=== PATIENT | female | born 1955 | race Caucasian/White ===

== ENCOUNTER 2019-12-15 07:44 | Outpatient (CLI) | payer BC, MEDICARE, OTHER, SELFPAY ==
--- NOTE | ~2019-12-15 | MM_ITS ---
EXAMINATION: MM screening marlon BI w mack HISTORY: Screening mammogram TECHNIQUE: Craniocaudal and mediolateral oblique 3-D tomosynthesis images were obtained and synthetic 2-D images were generated. CAD analysis was submitted and interpreted. COMPARISON: 08/26/2018 diagnostic left mammogram and left breast ultrasound 07/22/2018, 05/31/2017, 05/19/2016 bilateral digital screening mammogram examinations BREAST PARENCHYMAL COMPOSITION: There are scattered areas of fibroglandular density. FINDINGS: There is no evidence of suspicious mass, calcification, or architectural distortion to sugg est malignancy in either breast. There has been no suspicious interval change. IMPRESSION: 1. No mammographic evidence of malignancy. 2. Recommend routine screening mammography in one year. BI-RADS Category 1: Negative Reviewed, dictated and finalized at location A.
== END 2019-12-15 07:45 | disposition home or self-care (01) ==
PROVIDERS: PCP Internal Medicine; Visit Provider Internal Medicine
DX: Z12.31 Encounter for screening mammogram for malignant neoplasm of breast (principal)
CPT/HCPCS: 77063; 77067

== ENCOUNTER 2020-12-27 08:11 | Outpatient (CLI) | payer BC, MEDICARE, OTHER, SELFPAY ==
--- NOTE | ~2020-12-27 | MM_ITS ---
EXAMINATION: MM screening amrlon BI w mack HISTORY: Screening TECHNIQUE: Craniocaudal and mediolateral oblique 3-D tomosynthesis images were obtained and synthetic 2-D images were generated. CAD analysis was submitted and interpreted. COMPARISON: No prior mammogram is available for comparison at this institution. BREAST PARENCHYMAL COMPOSITION: There are scattered areas of fibroglandular density. FINDINGS: There is no evidence of suspicious mass, calcification, or architectural distortion to sugg est malignancy in either breast. There has been no suspicious interval change. IMPRESSION: 1. No mammographic evidence of malignancy. 2. Recommend routine screening mammography in one year. BI-RADS Category 1: Negative Reviewed, dictated and finalized at location A.
== END 2020-12-27 08:12 | disposition home or self-care (01) ==
LOC: CHSIMG 08:15
PROVIDERS: PCP Internal Medicine; Visit Provider Internal Medicine
DX: Z12.31 Encounter for screening mammogram for malignant neoplasm of breast (principal)
CPT/HCPCS: 77063; 77067

== ENCOUNTER 2021-01-07 10:30 | Outpatient (CLI) | payer BC, MEDICARE, OTHER, SELFPAY ==
--- NOTE | ~2021-01-07 | XR_ITS ---
EXAMINATION: XR chest 2V DATE: 01/07/2021 11:34 INDICATION: Chest pain. Bradycardia. TECHNIQUE: Frontal and lateral views of the chest were obtained. COMPARISON: Chest 2 views 01/15/2012 FINDINGS: There is no pneumonia, pleural effusion, or pneumothorax. The heart size is normal. IMPRESSION: 1. No acute cardiopulmonary disease. Reviewed, dictated and finalized at location B.
[2021-01-07 10:43] LABS: Basophils Absolute Auto 0.05 K/mm3 (0.00-0.10); Basophils Percent Auto 0.9 % (0.0-1.0); Eosinophils Absolute Auto 0.28 K/mm3 (0.02-0.50); Eosinophils Percent Auto 5.1 % (1.0-6.0); Hematocrit 39.7 % (35.0-42.0); Hemoglobin 13.1 g/dL (11.7-13.8); Immature Granulocyte Absolute 0.02 K/mm3 (0.00-0.00); Immature Granulocyte Percent A 0.4 % (0.0-0.0); Lymphocytes Absolute Auto 2.25 K/mm3 (1.10-4.50); Lymphocytes Percent Auto 40.9 % (18.0-42.0); Mean Corpuscular Volume 94.1 fL (78.0-102.0); Mean Platelet Volume 11.3 fl (9.2-11.8); Monocytes Absolute Auto 0.56 K/mm3 (0.10-0.90); Monocytes Percent Auto 10.2 % (2.0-11.0); Neutrophils Absolute Auto 2.3 K/mm3 (1.7-7.2); Neutrophils Percent Auto 42.5 % (50.0-70.0); Platelet Count Result 226 K/mm3 (150-420); Red Blood Count 4.22 M/mm3 (4.20-5.40); Red Cell Distribution Width 12.3 % (11.6-14.4); White Blood Count 5.5 K/mm3 (4.8-10.8)
[2021-01-07 10:56] LABS: D Dimer 0.24 mg/L (0.19-0.50)
[2021-01-07 11:10] LABS: Alanine Aminotransferase 27 U/L (14-59); Albumin Level 3.9 g/dL (3.4-5.0); Alkaline Phosphatase 79 U/L (46-116); Amylase 72 U/L (25-115); Anion Gap 9 mmol/L (8-16); Aspartate Amino Transferase 21 U/L (15-37); Bilirubin,Total 0.3 mg/dL (0.00-1.00); Blood Urea Nitrogen 21 mg/dL (7-18); Calcium 9.1 mg/dL (8.5-10.1); Carbon Dioxide 31 mmol/L (21-32); Chloride 105 mmol/L (98-108); Creatine Kinase 148 U/L (26-192); Estimated Glomerular Filt Rate 50; Glucose 74 mg/dL (70-99); Lipase 183 U/L (73-393); NT Pro B Type Natriuretic Pept 110 pg/mL (0-125); Osmolality Calculated 302 mOsm/kg (285-295); Potassium 3.6 mmol/L (3.5-5.1); Sodium 145 mmol/L (136-145); Total Protein 7.3 g/dL (6.4-8.2); Troponin I 5.5 ng/L (0.00-60.4)
== END 2021-01-07 10:31 | disposition home or self-care (01) ==
LOC: CHSLAB 10:34
PROVIDERS: PCP Internal Medicine; Visit Provider Nurse Practitioner Family
DX: R07.9 Chest pain, unspecified (principal); R00.1 Bradycardia, unspecified; I50.9 Heart failure, unspecified
CPT/HCPCS: 36415; 71046; 80053; 82150; 82550; 82553; 83690; 83880; 84439; 84443; 84484; 85025; 85380

== ENCOUNTER 2021-01-13 07:16 | Outpatient (CLI) | payer BC, MEDICARE, OTHER, SELFPAY ==
--- NOTE | 2021-01-13 08:15 | ECHO_ITS ---
Patient Info Name: Iglesia Delgado Age: 65 years : 1955 Gender: Female Ht: 64 in Wt: 165 lbs BSA: 1.86 m2 HR: 63 bpm BP: 146 / 51 mmHg Exam Date: 01/13/2021 7:15 AM Exam Location: [facility] [place] Patient Status: Outpatient Admit Date: 01/13/2021 Staff Ordering Physician: Timothy Oliva MD Manager Freelance: John Mijares RDCS, RT Attending Provider: Timothy Oliva MD Exam Type: CA echo doppler color flow Study Info Indications R94.31 - Abnormal electrocardiogram ECG EKG Complete two-dimensional, color flow and Doppler transthoracic echocardiogram is performed. Strain analysis performed. Summary 1. Complete two-dimensional, color flow and Doppler transthoracic echocardiogram is performed. 2. Left ventricular chamber dimension is normal. 3. Left ventricular systolic function is normal, estimated at 65-70%. 4. The left ventricular diastolic function is grade I diastolic dysfunction. 5. E/e' 9 is minimally elevated. 6. Global longitudinal strain is normal at -18.2%. 7. Left atrial chamber dimension is mildly enlarged. 8. There is trace mitral valve regurgitation. 9. There is trace tricuspid valve regurgitation. 10. No pulmonary hypertension, estimated pulmonary arterial systolic pressure is 30 mmHg. Left Ventricle E/e' 9 is minimally elevated. Global longitudinal strain is normal at -18.2%. Left ventricular chamber dimension is normal. Left ventricular systolic function is normal, estimated at 65-70%. The left ventricular diastolic function is grade I diastolic dysfunction. Right Ventricle Right ventricular systolic function is normal and with normal TAPSE 2.1 cm. Right ventricular chamber dimension is normal. Left Atria Left atrial chamber dimension is mildly enlarged. Right Atria Right atrial chamber dimension is normal. Aortic Valve The aortic valve is trileaflet. There is no aortic valve stenosis. There is no aortic valve regurgitation. Pulmonic Valve There is no pulmonic regurgitation. Mitral Valve There is no mitral valve stenosis. There is trace mitral valve regurgitation. Tricuspid Valve There is trace tricuspid valve regurgitation. No pulmonary hypertension, estimated pulmonary arterial systolic pressure is 30 mmHg. Pericardium/Pleural There is no pericardial effusion. Inferior Vena Cava Normal inferior vena cava with >50% collapse upon inspiration consistent with normal right atrial pressure, 5 mmHg. Aorta The aortic root size at the sinus of Valsalva is normal. Left Ventricular Outflow Tract Name Value Normal LVOT 2D LVOT Diameter 2.0 cm LVOT Doppler LVOT Peak Velocity 74 cm/s LVOT Peak Gradient 2 mmHg LVOT Mean Gradient 1 mmHg LVOT VTI 20 cm LVOT VTI/AV VTI Ratio 0.7 LVOT Stroke Volume 60 ml Mitral Valve Name Value Normal
== END 2021-01-13 07:17 | disposition home or self-care (01) ==
LOC: CHSIMG 07:18
PROVIDERS: PCP Internal Medicine; Visit Provider Internal Medicine
DX: R94.31 Abnormal electrocardiogram [ECG] [EKG] (principal)
CPT/HCPCS: 93306

== ENCOUNTER 2021-04-21 02:20 | Day surgery (SDC) | payer BC, MEDICARE, OTHER, SELFPAY ==
[2021-04-07 14:11] VITALS: BMI 28.3
[2021-04-21 06:43] VITALS: BP 158/55; PULSE 62; RESP 18; TEMP 36.1; O2SAT 99
[2021-04-21] MEDS: LACTATED RINGERS 1,000 ML 150 ML IV CONT (06:45)
--- NOTE | 2021-04-21 08:03 | P.PNAN_ITS ---
Anes - Initial Pre Proc Eval Procedure: Operation Date: 04/21/21 08:00 Proposed Procedures p Screening Colonoscopy - Padilla Beverly DO Date/Time: 04/21/21 08:03 Surgeon: Padilla Beverly DO Pre Op Diagnosis: hx of colon polyps Patient Data Age: 65 Gender: F Height: 1.63 m Weight: 74 kg Last Vital Signs Temp 97.0 F L 04/21/21 06:43 Pulse 62 04/21/21 06:43 Resp 18 04/21/21 06:43 BP 158/55 H 04/21/21 06:43 Pulse Ox 99 04/21/21 06:43 Allergies Allergy/AdvReac Type Severity Reaction Status Date / Time No Known Allergies Allergy Verified 04/21/21 06:41 Home Medications Medication Instructions Recorded Confirmed Type 5htp 100mg 100 mg PO HS 03/28/21 04/07/21 History ascorbic acid (vitamin C) 500 mg 500 mg PO DAILY 03/28/21 04/07/21 History tablet glucosamine sulfate 500 mg tablet 500 mg PO DAILY 03/28/21 04/07/21 History lactobacillus combination no.9 4 4,000 mmu cells PO DAILY 03/28/21 04/07/21 History billion cell capsule levothyroxine 100 mcg capsule 100 mcg PO DAILY 03/28/21 04/07/21 History magnesium 250 mg tablet 250 mg PO DAILY 03/28/21 04/07/21 History melatonin 10 mg capsule 20 mg PO QHS cap 03/28/21 04/07/21 History multivitamin 1 tablet PO DAILY 03/28/21 04/07/21 History potassium 99 mg tablet 100 mg PO DAILY 03/28/21 04/07/21 History telmisartan 80 1 tablet PO DAILY 03/28/21 04/07/21 History mg-hydrochlorothiazide 12.5 mg tablet vitamin A-vitamin C-vitamin E 1 tablet PO DAILY 03/28/21 04/07/21 History zinc acetate 50 mg (zinc) capsule 50 mg PO DAILY 03/28/21 04/07/21 History Patient hx anesthesia problems: none Family hx anesthesia problems: none Results Review: All pre-operative results and documents have been reviewed as part of the pre-operative evaluation. [facility] Past Medical History Medical History (Updated 04/21/21 @ 08:03 by Rakesh Sargent MD) Asthma Hypertension Irregular heart beat wearing a holter monitor for bradycardia; 35 lowest HR Social History Social History (Updated 03/28/21 @ 14:07 by Candy East CMA) Years smoked: 20 Smoking status: Former smoker Tobacco type: cigarettes Drinks per week: 6 Living arrangements: with family Spiritual care concerns: No Anes - Eval Final PreProcedure Day of Procedure 04/21/21 08:03 Patient weight: overweight Heart: regular rate and rhythm Lungs: clear to auscultation Airway: Mallampati scale class II Neurological: alert and oriented Last oral intake: >/= 8 hours ASA classification: II Emergent: no Anesthetic plan: proceed Anesthesia type and monitoring: general GIVS and standard monitoring Results Review: All pre-operative results and documents have been reviewed as part of the pre-operative evaluation. Informed Consent: The patient's anesthetic plan and its attendant risks and benefits were discussed with the patient/family/POA. Questions were solicited and answers provided to the satisfaction of the patient/family/POA.
--- NOTE | 2021-04-21 08:10 | PM.IMHP ---
H&P: HPI History of Present Illness Date/Time: 04/21/21 08:10 Chief Complaint: history of polyps Narrative: this is a 65-year-old woman who presents for colonoscopy. She previously underwent right hemicolectomy for a large cecal polyp in 2018. She denies any hematochezia or melena. She denies any family history of colon cancer. Review of Systems Review of Systems: All systems reviewed & are unremarkable except as noted in HPI and below Constitutional: Constitutional: Denies chills, Denies fever(s), Denies headache(s) and Denies weight loss Eyes: Eyes: Denies change in vision ENT: Denies dizziness, Denies headache(s), Denies neck mass and Denies throat swelling Cardiovascular: Cardiovascular: Denies chest pain, Denies lightheadedness and Denies dyspnea Respiratory: Respiratory: Denies cough, Denies dyspnea and Denies wheezing Gastrointestinal: Gastrointestinal: Denies abdominal pain, Denies change in bowel habits, Denies nausea and Denies vomiting Genitourinary: Genitourinary: Denies hematuria and Denies dysuria Musculoskeletal: Musculoskeletal: Reports as per HPI Integumentary/Breasts: Skin/Breast: Reports as per HPI Neurologic: Denies dizziness and Denies headache(s) Allergic/Immunologic: Allergic/Immunologic: Denies throat swelling and Denies wheezing [facility] Past Medical History Medical History (Updated 04/21/21 @ 08:11 by Padilla Beverly DO) Asthma Hypertension Irregular heart beat wearing a holter monitor for bradycardia; 35 lowest HR Social History Social History (Updated 03/28/21 @ 14:07 by Candy East [facility]) Years smoked: 20 Smoking status: Former smoker Tobacco type: cigarettes Drinks per week: 6 Living arrangements: with family Spiritual care concerns: No Meds Home Medications and Allergies Home Medications Medication Instructions Recorded Confirmed Type 5htp 100mg 100 mg PO HS 03/28/21 04/07/21 History ascorbic acid (vitamin C) 500 mg 500 mg PO DAILY 03/28/21 04/07/21 History tablet glucosamine sulfate 500 mg tablet 500 mg PO DAILY 03/28/21 04/07/21 History lactobacillus combination no.9 4 4,000 mmu cells PO DAILY 03/28/21 04/07/21 History billion cell capsule levothyroxine 100 mcg capsule 100 mcg PO DAILY 03/28/21 04/07/21 History magnesium 250 mg tablet 250 mg PO DAILY 03/28/21 04/07/21 History melatonin 10 mg capsule 20 mg PO QHS cap 03/28/21 04/07/21 History multivitamin 1 tablet PO DAILY 03/28/21 04/07/21 History potassium 99 mg tablet 100 mg PO DAILY 03/28/21 04/07/21 History telmisartan 80 1 tablet PO DAILY 03/28/21 04/07/21 History mg-hydrochlorothiazide 12.5 mg tablet vitamin A-vitamin C-vitamin E 1 tablet PO DAILY 03/28/21 04/07/21 History zinc acetate 50 mg (zinc) capsule 50 mg PO DAILY 03/28/21 04/07/21 History Allergies Allergy/AdvReac Type Severity Reaction Status Date / Time No Known Allergies Allergy Verified 04/21/21 06:41 Vital Signs Vital Signs - 24 hr 04/21/21 06:43 Temperature 36.1 C L Pulse Rate 62 Respiratory Rate 18 Blood Pressure 158/55 H Pulse Oximetry 99 Exam Const: General: no acute distress and alert Orientation/consciousness: patient oriented x3 HENMT: Head: normocephalic and atraumatic Ears: hearing grossly normal bilaterally General nose exam: Normal nares present Mouth: Yes Normal oral and palatal mucosa present Eyes: Periorbital: periorbital findings normal Sclera: sclerae normal EOM: EOMs intact bilaterally Neck: Neck: normal visual inspection, no lymphadenopathy and trachea midline Chest: Chest palpation & inspection: normal inspection of the chest Resp: Effort & Inspection: normal respiratory effort Auscultation: clear to auscultation bilaterally Cardio: Jugular venous distension: no JVD Rate: regular rate Rhythm: regular rhythm Heart sounds: S1 normal heart sound present and S2 normal heart sound present Peripheral pulses: Peripheral pulses 2+ throughout GI: Inspection:
[2021-04-21 08:35] VITALS: BP 118/62; PULSE 77; RESP 16; O2SAT 98
[2021-04-21 08:45] VITALS: BP 128/73; PULSE 75; RESP 16; O2SAT 99
[2021-04-21 08:55] VITALS: BP 142/78; PULSE 60; RESP 18; O2SAT 100
== END 2021-04-21 09:10 | disposition home or self-care (01) ==
PROVIDERS: PCP Internal Medicine; Visit Provider Surgery
PROC: 0DJD8ZZ Inspection of Lower Intestinal Tract, Via Natural or Artificial Opening Endoscopic (ICD-10-PCS; CPT 45378; principal; 2021-04-21 08:00)
DX: Z12.11 Encounter for screening for malignant neoplasm of colon (principal); K57.30 Diverticulosis of large intestine without perforation or abscess without bleeding; Z86.010 Personal history of colon polyps; Z90.49 Acquired absence of other specified parts of digestive tract; I10 Essential (primary) hypertension; J45.909 Unspecified asthma, uncomplicated; Z87.891 Personal history of nicotine dependence
CPT/HCPCS: 45378; J2704; J7120

== ENCOUNTER 2022-04-10 08:10 | Outpatient (CLI) | payer BC, MEDICARE, OTHER, SELFPAY ==
--- NOTE | ~2022-04-10 | MM_ITS ---
EXAMINATION: MM screening marlon BI w mack HISTORY: Screening mammogram TECHNIQUE: Craniocaudal and mediolateral oblique 3-D tomosynthesis images were obtained and synthetic 2-D images were generated. CAD analysis was submitted and interpreted. COMPARISON: 12/27/2020, 12/15/2019 bilateral screening mammogram examinations BREAST PARENCHYMAL COMPOSITION: There are scattered areas of fibroglandular density. FINDINGS: There is no evidence of suspicious mass, calcification, or architectural distortion to sugg est malignancy in either breast. There has been no suspicious interval change. IMPRESSION: 1. No mammographic evidence of malignancy. 2. Recommend routine screening mammography in one year. BI-RADS Category 1: Negative Reviewed, dictated and finalized at location A. [employer]
== END 2022-04-10 08:11 | disposition home or self-care (01) ==
LOC: CHSIMG 08:11
PROVIDERS: PCP Internal Medicine; Visit Provider Internal Medicine
DX: Z12.31 Encounter for screening mammogram for malignant neoplasm of breast (principal)
CPT/HCPCS: 77063; 77067

== ENCOUNTER 2024-03-17 14:18 | Outpatient (CLI) | payer MEDICARE, SELFPAY ==
--- NOTE | ~2024-03-17 | MM_ITS ---
EXAMINATION: MM screening marlon BI w mack HISTORY: Screening mammogram, family history of breast cancer in her sister. TECHNIQUE: Craniocaudal and mediolateral oblique 3-D tomosynthesis images were obtained and synthetic 2-D images were generated. CAD analysis was submitted and interpreted. COMPARISON: 04/10/2022, 12/27/2020, 12/15/2019 BREAST PARENCHYMAL COMPOSITION:Not Dense. There are scattered areas of fibroglandular density. FINDINGS: No suspicious mass, calcification, or architectural distortion are identified in either terry ast to suggest malignancy. There has been no suspicious interval change. IMPRESSION: No mammographic evidence of malignancy. Recommend routine screening mammography in one year. BI-RADS Category 1: Negative Reviewed, dictated and finalized at location .
== END 2024-03-17 14:19 | disposition home or self-care (01) ==
LOC: CHSIMG 14:22
PROVIDERS: PCP Internal Medicine; Visit Provider Internal Medicine
DX: Z12.31 Encounter for screening mammogram for malignant neoplasm of breast (principal)
CPT/HCPCS: 77063; 77067

== ENCOUNTER 2024-10-27 13:02 | Outpatient (CLI) | payer MEDICARE, SELFPAY ==
--- NOTE | ~2024-10-27 | DEXA_ITS ---
Bone Density Report Name: SHERRY DAVIS Age: 68 Sex: Female Ethnicity: White Date of : 1955 Indication: postmenopausal; screening for osteoporosis; asthma or emphysema; hysterectomy; Referring Provider: Timothy Oliva Study: Bone densitometry was performed. Exam Date: October 27, 2024 Accession number: [id number] Bone Density: Region BMD T-score Z-score Classification AP Spine(L1-L4) 1.018 -0.3 1.8 Normal Femoral Neck (Left) 0.777 -0.6 1.1 Normal Total Hip (Left) 0.914 -0.2 1.3 Normal Femoral Neck (Right) 0.802 -0.4 1.4 Normal Total Hip (Right) 0.930 -0.1 1.4 Normal Femoral Neck Mean 0.790 -0.5 1.3 Normal Total Hip Mean 0.922 -0.2 1.3 Normal World Health Organization criteria for BMD impression classify patients as: Normal (T-score at or above -1.0), Osteopenia (T-score between -1.0 and -2.5), or Osteoporosis (T-score at or below -2.5). 10-year Fracture Risk: FRAX not reported because: All T-scores for Spine Total, Hip Total, Femoral Neck at or above -1.0 Clinical Information Provided by Patient: Has used the following medications: Vitamin D Has the following medical conditions: Asthma or Emphysema, Hysterectomy Patient maximum height was 64 Menopause Age: 41 No regular weight bearing exercise Drinks caffeinated beverages Onset of menses at age 13 Number of children 2 Impression: The patient has normal bone mass. Discussion: BONE DENSITY IS ABOVE THE MINIMUM DESIRABLE LEVEL AT ALL SKELETAL SITES TESTED. This patient?s bone mineral density is above the minimum desirable level (T-score -1.0 or better) at all sites measured. The patient should follow a healthful lifestyle (good nutrition with adequate calcium and vitamin D, and appropriate weight-bearing exercise). Follow-Up: Consider repeating this study in 5 years or sooner if there is some new clinical indication. Reported by: JOSEPH on 10/27/2024 1:37:00 PM. Reviewed, dictated and finalized at location A.
== END 2024-10-27 13:03 | disposition home or self-care (01) ==
PROVIDERS: PCP Internal Medicine; Visit Provider Internal Medicine
DX: Z78.0 Asymptomatic menopausal state (principal)
CPT/HCPCS: 77080

== ENCOUNTER 2025-05-15 13:00 | Outpatient (RCR) | payer MEDICARE, SELFPAY ==
--- NOTE | 2025-04-07 14:10 | PTOPEVAL1 ---
Assessment and note entered by Eleanor Bear DPT Evaluation Information Assessment Status Evaluation Diagnosis L shoulder pain ICD-10 Condition Codes (PT) Pain in left shoulder M25.512 Other ICD-10 Condition Codes ( S46.002A PT) Onset 04/02/25 Subjective Information Patient reports that she has had L shoulder pain for about 2 months. She contributes it to pushing her brother in a wheel chair. She reports she had not had any imaging of the shoulder. She reports she has been using ice and taking pain medication in the mornings. She reports she has pain and difficulty with dressing, bathing, driving, sleeping and completing house hold tasks. 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 Reported Pain Level Pain Score 6: Self Report Assessment PT Clinical Summary Ms. Delgado is a 69 year old female who presents to PT with L shoulder pain. She demonstrates decreased L shoulder active ROM, decreased L shoulder strength and impaired posture limiting her abiltiy to sleep, drive, dress and complete house hold tasks. She would benefit from skilled PT to address impairments and return to PLOF. Plan of Care Interventions Electrical Stimulation,Hot Pack/Cold Pack, Intermittent Compression Pump,Manual Therapy,Neuro Re-education,Patient/Caregiver Education, Therapeutic Activities,Therapeutic Exercise PT Services Indicated Yes Treatment Frequency and 2x weekly for 10 visits Duration These treatments will address the objective and functional deficits as defined above. The patient will be advanced safely and appropriately in order for the patient to progress towards his/her prior level of function. Additional exercises will be introduced and as well as a comprehensive home exercise program upon discharge, if needed, ?to ensure carryover of functional gains achieved in the clinic. This treatment plan has been reviewed and agreement upon by the patient.
--- NOTE | 2025-05-15 13:58 | OPREHPOC ---
Outpatient Therapy Plan of Care This is a Multidisciplinary Plan of Care that may contain components documented by all disciplines (PT, OT, and ST.) PT Problem 1 PT Problem #1 Knowledge Deficit PT Goal 1 Goal / Goal Update patient to demonstrate independence with HEP Target Visit 5 Progress Met PT Problem 2 PT Problem #2 Pain PT Goal 1 Goal / Goal Update 1. patient to report highest pain at 2/10 2. patient to report ability to sleep without disturbance due to L shoulder pain. met Target Visit 10 Progress Partially Met PT Problem 3 PT Problem #3 Impaired Range of Motion PT Goal 1 Goal / Goal Update Patient to demonstrate 160 deg of active L shoulder flexion to return to reaching into cabinets at PLOF Target Visit 10 Progress Met PT Problem 4 PT Problem #4 Impaired Strength PT Goal 1 Goal / Goal Update Patient to demonstrate 4+/5 L shoulder strength to return to lifting for house hold tasks Target Visit 10 Progress Met PT Problem 5 PT Problem #5 Impaired Functional Mobility PT Goal 1 Goal / Goal Update 1. Patient to score <20% disability on [employer]. not met 2. Patient to report ability to drive >30 minutes with no onset of L shoulder pain. met 3. Patient to report ability to dress with no increase in L shoulder pain. met Target Visit 10 Progress Partially Met
--- NOTE | 2025-05-15 13:58 | PTOPDC ---
Assessment and note entered by JT File, PT Evaluation Information Assessment Status Discharge Diagnosis L shoulder pain ICD-10 Condition Codes (PT) Pain in left shoulder M25.512 Other ICD-10 Condition Codes ( S46.002A PT) Onset 04/02/25 Subjective Information patient reports she is much better than when she first started. she reports she only has pain in certain positions of reaching. she reports she is able to dress and sleep without issues. she reports she is compliant with her HEP at home. Reported Pain Level Pain Score 0: Self Report Assessment PT Clinical Summary mrs. pinto presents to skilled PT services for her 10th skilled PT visit. she displays improve L shoulder rom, strength, and functional use/reach. she does have continued pain still at times with certain reaching positions. overall she is significantly improved. she is compliant with her HEP. she will DC skilled PT today, and continue with her HEP independent at home. Plan of Care PT Services Indicated Yes
== END 2025-05-15 15:23 | disposition home or self-care (01) ==
LOC: CHSPT 13:00
PROVIDERS: PCP Nurse Practitioner Family; Visit Provider Nurse Practitioner Family
DX: S46.002A Unspecified injury of muscle(s) and tendon(s) of the rotator cuff of left shoulder, initial encounter (principal)
CPT/HCPCS: 97014; 97110; 97112; 97140; 97150; 97161; 97530; G0283